=== PATIENT | female | born 1985 | race Caucasian/White ===

== ENCOUNTER → 2017-12-02 | Day surgery (SDC) | payer OTHER ==
[~2017-12-02] MED LIST: LIDOCAINE 1% MDV 20ML VIAL SQ; LIDOCAINE 2% INJ 100 MG/5 ML SDV (FOR ANES.) As Ordered; LR 1,000 ML IV; MIDAZOLAM INJ 2 MG/2 ML VIAL (J2250) As Ordered; PROPOFOL 200 MG/20 ML VIAL As Ordered; ROCURONIUM BROMIDE 50 MG/5 ML VIAL As Ordered; fentaNYL 100 MCG/2 ML INJECTION (J3010) As Ordered
[2017-12-02 07:29] LABS: CONTROL LINE UCG INT CTR LINE PRESENT
[2017-12-02 07:32] LABS: URINE PREG TEST POSITIVE (NEGATIVE)
== END | disposition home or self-care (01) ==
LOC: M SDC 06:44
DX: Z30.2 Encounter for sterilization (principal); Z53.09 Procedure and treatment not carried out because of other contraindication; Z33.1 Pregnant state, incidental
CPT/HCPCS: 84703

== ENCOUNTER → 2018-01-19 | Outpatient (CLI) | payer OTHER | LOC: M SMT 09:35 | DX: Z13.79 Encounter for other screening for genetic and chromosomal anomalies (principal) | CPT/HCPCS: 36415 ==

== ENCOUNTER → 2018-02-15 | Outpatient (CLI) | payer OTHER ==
[2018-02-15 13:28] LABS: BASO % 0.4 % (0.0-1.0); EOS # 0.1 10^3/uL (0.0-0.50); EOS % 1.3 % (0.0-3.0); HEMATOCRIT 37.3 % (36.0-47.0); IMMATURE GRANULOCYTE % 0.8 % (0-3.0); LYMPH % 30.3 % (24.0-44.0); MEAN CORPUSCULAR HEMOGLOBIN 31.3 pg (27.0-33.0); MEAN CORPUSCULAR HGB CONC 34.9 g/dl (32.0-36.5); MEAN CORPUSCULAR VOLUME 89.9 fl (80.0-96.0); MONO # 0.8 10^3/uL (0.0-0.8); MONO % 7.6 % (0.0-5.0); NEUTROPHILS % 59.6 % (36.0-66.0); PLATELET COUNT, AUTOMATED 384 10^3/uL (150-450); RED BLOOD COUNT 4.15 10^6/uL (4.00-5.40); RED CELL DISTRIBUTION WIDTH 12.3 % (11.5-14.5)
[2018-02-15 16:19] LABS: CHLAMYDIA DNA AMPLIFICATION NEGATIVE (NEGATIVE); GC DNA AMPLIFICATION NEGATIVE (NEGATIVE)
[2018-02-16 09:03] LABS: RUBELLA IgG QUALITATIVE IMMUNE (IMMUNE)
[2018-02-16 09:11] LABS: HBsAg Prenatal NEGATIVE (NEGATIVE)
[2018-02-16 09:33] LABS: HEPATITIS C VIRUS ABY INDEX 0.1 INDEX (<0.8)
[2018-02-16 09:34] LABS: HIV 1&2 SCREEN CENTAUR NEGATIVE (NEGATIVE)
== END ==
LOC: M SMT 08:17
DX: Z34.81 Encounter for supervision of other normal pregnancy, first trimester (principal); Z36.89 Encounter for other specified antenatal screening
CPT/HCPCS: 86762

== ENCOUNTER → 2018-03-11 | Outpatient (CLI) | payer OTHER | LOC: M RAD 07:32 | DX: Z36.89 Encounter for other specified antenatal screening (principal); Z3A.18 18 weeks gestation of pregnancy | CPT/HCPCS: 76817 ==

== ENCOUNTER → 2018-04-05 | Outpatient (CLI) | payer OTHER | LOC: M RAD 07:29 | DX: Z34.82 Encounter for supervision of other normal pregnancy, second trimester (principal); Z36.89 Encounter for other specified antenatal screening; Z3A.22 22 weeks gestation of pregnancy | CPT/HCPCS: 76816 ==

== ENCOUNTER → 2018-05-05 | Outpatient (CLI) | payer OTHER ==
[2018-05-05 12:49] LABS: HEMATOCRIT 34.4 % (36.0-47.0); HEMOGLOBIN 11.6 g/dl (12.0-15.5); MEAN CORPUSCULAR HEMOGLOBIN 31.6 pg (27.0-33.0); MEAN CORPUSCULAR HGB CONC 33.7 g/dl (32.0-36.5); MEAN CORPUSCULAR VOLUME 93.7 fl (80.0-96.0); PLATELET COUNT, AUTOMATED 317 10^3/uL (150-450); RED BLOOD COUNT 3.67 10^6/uL (4.00-5.40); RED CELL DISTRIBUTION WIDTH 12.3 % (11.5-14.5); WHITE BLOOD COUNT 9.5 10^3/uL (4.0-10.0)
[2018-05-05 12:56] LABS: GLUCOSE CHALLENGE TEST 1 HOUR 141 MG/DL (LESS THAN 140)
[2018-05-06 08:36] LABS: RH ONLY RHOGAM 1 1
== END ==
LOC: M LAB 10:24
DX: Z34.82 Encounter for supervision of other normal pregnancy, second trimester (principal); Z36.89 Encounter for other specified antenatal screening
CPT/HCPCS: 82950

== ENCOUNTER → 2018-05-10 | Outpatient (CLI) | payer OTHER ==
[2018-05-10 08:28] LABS: GLUCOSE, FASTING 94 MG/DL (LESS THAN 95)
[2018-05-10 09:40] LABS: 1 HR GLUCOSE 166 MG/DL (LESS THAN 180)
[2018-05-10 11:18] LABS: 2 HR GLUCOSE 167 MG/DL (LESS THAN 155)
[2018-05-10 12:58] LABS: 3 HR GLUCOSE 135 MG/DL (LESS THAN 140)
== END ==
LOC: M LAB 07:00
DX: O34.12 Maternal care for benign tumor of corpus uteri, second trimester (principal)
CPT/HCPCS: 82951

== ENCOUNTER → 2018-05-31 | Outpatient (CLI) | payer OTHER ==
[2018-05-31 14:20] LABS: TOTAL PROTEIN,RANDOM URINE 5.7 MG/DL (0.0-12.0)
[2018-05-31 14:20] LABS: CREATININE,RANDOM URINE 21.9 MG/DL
[2018-05-31 17:25] LABS: HEMATOCRIT 36.5 % (36.0-47.0); HEMOGLOBIN 12.5 g/dl (12.0-15.5); MEAN CORPUSCULAR HEMOGLOBIN 31.6 pg (27.0-33.0); MEAN CORPUSCULAR HGB CONC 34.2 g/dl (32.0-36.5); MEAN CORPUSCULAR VOLUME 92.4 fl (80.0-96.0); PLATELET COUNT, AUTOMATED 338 10^3/uL (150-450); RED BLOOD COUNT 3.95 10^6/uL (4.00-5.40); RED CELL DISTRIBUTION WIDTH 12.3 % (11.5-14.5); WHITE BLOOD COUNT 11.6 10^3/uL (4.0-10.0)
[2018-05-31 17:33] LABS: ALT/SGPT 19 U/L (12-78); AST/SGOT 16 U/L (7-37); BILIRUBIN,TOTAL 0.2 MG/DL (0.2-1.0); CREATININE FOR GFR 0.61 MG/DL (0.55-1.30); GLOMERULAR FILTRATION RATE > 60.0 (>60); LDH LACTATE DEHYDROGENASE 193 U/L (84-246)
[2018-06-01 11:40] LABS: URIC ACID 3.8 MG/DL (2.6-6.0)
== END ==
LOC: M SMT 12:28
DX: O16.3 Unspecified maternal hypertension, third trimester (principal); O34.12 Maternal care for benign tumor of corpus uteri, second trimester; I31.3 Pericardial effusion (noninflammatory); Z3A.30 30 weeks gestation of pregnancy
CPT/HCPCS: 84460

== ENCOUNTER → 2018-06-01 | Outpatient (CLI) | payer OTHER | LOC: M SMT 10:55 | DX: O99.89 Other specified diseases and conditions complicating pregnancy, childbirth and the puerperium (principal); Z3A.30 30 weeks gestation of pregnancy | CPT/HCPCS: 76815 ==

== ENCOUNTER → 2018-06-10 | Outpatient (CLI) | payer OTHER | LOC: M RAD 08:12 | DX: O13.3 Gestational [pregnancy-induced] hypertension without significant proteinuria, third trimester (principal); Z3A.31 31 weeks gestation of pregnancy | CPT/HCPCS: 76815 ==

== ENCOUNTER → 2018-06-17 | Outpatient (CLI) | payer OTHER | LOC: M RAD 08:47 | DX: O13.3 Gestational [pregnancy-induced] hypertension without significant proteinuria, third trimester (principal); Z3A.32 32 weeks gestation of pregnancy | CPT/HCPCS: 76815 ==

== ENCOUNTER → 2018-06-21 | Outpatient (CLI) | payer OTHER ==
[~2018-06-21] MED LIST changes: +ADVI200C5 PO; +LABE10TAB PO; -LIDOCAINE 1% MDV 20ML VIAL SQ; -LIDOCAINE 2% INJ 100 MG/5 ML SDV (FOR ANES.) As Ordered; -LR 1,000 ML IV; -MIDAZOLAM INJ 2 MG/2 ML VIAL (J2250) As Ordered; +PRENTAB9 PO; -PROPOFOL 200 MG/20 ML VIAL As Ordered; -ROCURONIUM BROMIDE 50 MG/5 ML VIAL As Ordered; +ZOFR4TAB14 SL; -fentaNYL 100 MCG/2 ML INJECTION (J3010) As Ordered
[2018-06-21 11:57] LABS: ALT/SGPT 28 U/L (12-78); BILIRUBIN,TOTAL 0.2 MG/DL (0.2-1.0); CREATININE FOR GFR 0.55 MG/DL (0.55-1.30); GLOMERULAR FILTRATION RATE > 60.0 (>60); LDH LACTATE DEHYDROGENASE 188 U/L (84-246)
[2018-06-21 12:30] LABS: HEMATOCRIT 35.4 % (36.0-47.0); MEAN CORPUSCULAR HEMOGLOBIN 31.2 pg (27.0-33.0); MEAN CORPUSCULAR HGB CONC 33.9 g/dl (32.0-36.5); MEAN CORPUSCULAR VOLUME 91.9 fl (80.0-96.0); PLATELET COUNT, AUTOMATED 322 10^3/uL (150-450); RED BLOOD COUNT 3.85 10^6/uL (4.00-5.40); WHITE BLOOD COUNT 12.1 10^3/uL (4.0-10.0)
[2018-06-21 14:05] LABS: TOTAL PROTEIN,RANDOM URINE 8.4 MG/DL (0.0-12.0)
== END ==
LOC: M LAB 10:55 → MERGE 10:55
PROVIDERS: ATTEND Obstetrics & Gynecology
DX: O13.3 Gestational [pregnancy-induced] hypertension without significant proteinuria, third trimester (principal)

== ENCOUNTER → 2018-06-24 | Outpatient (CLI) | payer OTHER ==
--- NOTE | 2018-06-24 11:26 | REP ---
Obstetric sonography: Limited study. History: Hypertension. well-being study. Findings: Scanning through the gravid uterus demonstrates a viable single intrauterine gestation in a cephalic lie. Placenta is and anterior O fundal grade 3 without evidence of previa. Amniotic fluid is subjectively normal. CARMENCITA is normal and 9.5 cm. heart rate is recorded at 136 beats per minute. Biophysical profile score is 8/8. SD ratio is normal at 2.56. Electronically Signed by Gabino Salgado MD 06/24/2018 11:17 A
== END ==
LOC: M RAD 08:37
PROVIDERS: ATTEND Obstetrics & Gynecology
DX: O13.3 Gestational [pregnancy-induced] hypertension without significant proteinuria, third trimester (principal)

== ENCOUNTER → 2018-06-29 | Outpatient (REF) | payer OTHER | LOC: M LAB REF 13:07 | PROVIDERS: ATTEND Obstetrics & Gynecology | DX: O14.03 Mild to moderate pre-eclampsia, third trimester (principal) ==

== ENCOUNTER → 2018-06-30 | Outpatient (CLI) | payer OTHER ==
--- NOTE | 2018-06-30 10:01 | REP ---
Clinical: Growth evaluation. Comparison: 06/24/2018, 06/17/2018 . Findings: Examination demonstrates a single live intrauterine in cephalic presentation. motion is identified by technologist. Placenta is noted anterior and grade III without evidence for placenta previa or abruption. 2.3 cm anterior intramural fibroid identified. Amniotic fluid volume is normal. Cervix measures 4.5 cm in length and appears closed. No evidence for nuchal cord. Gestational age by LMP 34 weeks 2 days with LAKEISHA 08/09/2018 . Gestational age by first US measurements 33 weeks 5 days with LAKEISHA 08/13/2018 . FHR equals 139 beats per minute. Amniotic fluid index: 10.6 cm (8.0 - 24.8) Biophysical profile score equals 8/8 Umbilical cord SD ratio: 2.32 (2.00 - 3.20) Impression: 1. Single live intrauterine in cephalic presentation. Biophysical profile score and amniotic fluid volume are normal. 2. 2.3 cm anterior intramural fibroid again noted. Electronically Signed by Dave Jones MD 06/30/2018 09:53 A
== END ==
LOC: M RAD 09:10
PROVIDERS: ATTEND Obstetrics & Gynecology
DX: O13.3 Gestational [pregnancy-induced] hypertension without significant proteinuria, third trimester (principal); Z3A.34 34 weeks gestation of pregnancy

== ENCOUNTER 2018-07-06 11:38 | Outpatient (CLI) | payer OTHER ==
[~2018-07-06] VITALS: Ht 160 cm; Wt 73.7 kg
[2018-07-06] VITALS (28 sets, daily range): BP systolic 124–171; BP diastolic 82–106
[~2018-07-06 11:38] MED LIST changes: -LABE10TAB PO; -PRENTAB9 PO; -ZOFR4TAB14 SL
[2018-07-06] MEDS ORDERED: LABE10TAB PO (11:55)
[2018-07-06] MEDS ORDERED: PRENTAB9 PO (11:55)
[2018-07-06 12:40] LABS: HEMATOCRIT 36.2 % (36.0-47.0); HEMOGLOBIN 12.4 g/dl (12.0-15.5); MEAN CORPUSCULAR HEMOGLOBIN 30.7 pg (27.0-33.0); MEAN CORPUSCULAR HGB CONC 34.3 g/dl (32.0-36.5); MEAN CORPUSCULAR VOLUME 89.6 fl (80.0-96.0); PLATELET COUNT, AUTOMATED 287 10^3/uL (150-450); RED BLOOD COUNT 4.04 10^6/uL (4.00-5.40); WHITE BLOOD COUNT 10.5 10^3/uL (4.0-10.0)
[2018-07-06] MEDS ORDERED: BETAMETHASONE SOLUSPAN 6MG/ML INJ 5ML (J0702) IM SCH (13:00)
[2018-07-06 13:14] LABS: ALT/SGPT 22 U/L (12-78); BILIRUBIN,TOTAL 0.1 MG/DL (0.2-1.0); CREATININE FOR GFR 0.63 MG/DL (0.55-1.30); GLOMERULAR FILTRATION RATE > 60.0 (>60); LDH LACTATE DEHYDROGENASE 205 U/L (84-246); URIC ACID 4.1 MG/DL (2.6-6.0)
[2018-07-06 13:22] LABS: CREATININE,RANDOM URINE 27.8 MG/DL; TOTAL PROTEIN,RANDOM URINE 14.4 MG/DL (0.0-12.0)
[2018-07-06] MEDS ORDERED: LABETALOL 100 MG TAB PO SCH (14:00)
--- NOTE | 2018-07-06 16:21 | IPN ---
DATE: 07/06/2018 Selena is a 33-year-old 4, para 2-0-1-2 at 35-1/7 weeks gestation with an estimated date of confinement (EDC) of 08/09/2018 based on last menstrual period and confirmed by first-trimester ultrasound. She presents to labor and delivery today following a routine visit, in which she was found to have blood pressures elevated in the 150s over 90s. She denies visual disturbances, headache, epigastric pain, right upper quadrant discomfort. She denies contractions, vaginal bleeding, and leakage of fluid. The fetus has been active. The care was initiated at [facility] in the first trimester. course complicated by an onset of pre-eclampsia at about 29 weeks gestation. She has been taking labetalol 100 mg by mouth twice a day since 31 weeks gestation. OBSTETRIC HISTORY: February 2005, a 39-week vaginal delivery, 6-pound 2-ounce male. No complications. February 2006, a 40-week vaginal delivery, male, 8 pounds 7 ounces. She had an elective termination of in July 2012. OBSTETRIC LABORATORIES: A negative, antibody screen negative, rubella immune, VDRL nonreactive. Urine culture: No growth. Hepatitis B surface antigen negative, HIV negative, hepatitis C antibody nonreactive, gonorrhea and chlamydia negative. She did undergo genetic serum screenings and found to have [place], which showed low probability for aneuploidy. Her gestational diabetic screening was elevated at 141 with a normal 3-hour glucose tolerance test. Fasting 94, 1-hour 166, 2-hour 167, 3-hour 135. GBS is negative. PAST MEDICAL HISTORY: 1. Chlamydia in 2009. 2. Childhood Varicella. SURGERIES: 1. Dilatation and curettage (D and C). 2 [place] tooth extraction. FAMILY HISTORY: Hypertension, anxiety. SOCIAL HISTORY: The patient is single; however, her partner is involved in her . She is a nonsmoker. Denies alcohol and drug use. A history of chlamydia. Denies history of abuse, physical, sexual, and emotional. ALLERGIES: Adhesives, Band-Aides, and tapes. CURRENT MEDICATIONS: - labetalol 100 mg by mouth twice a day - vitamin - Fioricet as needed for headaches OBJECTIVE: Upon arrival, her temperature was 97.8, pulse 91, respirations 18, blood pressure (BP) upon arrival was 158/97. She did hover in the 140s over 90s and 100s. Since receiving a midday labetalol dose of 100 mg, her pressures have been running in the 130s over 90s. heart rate is 140 with moderate variability. Positive accelerations. No decelerations. No pattern of regular contractions. Sterile vaginal exam deferred. Her labs have been repeated. Uric acid of 1.1. AST 23, ALT 22. LDH 205. Hemoglobin 12.4, hematocrit 36.2, platelets 287. Her spot urine is stable at 0.52. On 06/21/2018 it was 0.53. On 05/31/2018 it as 0.26. ASSESSMENT: Intrauterine at 35-1/7 weeks gestation, pre-eclampsia. heart rate category 1. PLAN: Continue to observe throughout the day, motioning pressures. At this time I will encourage some out-of-bed activity so we can see where her pressures lie with activity. She has received one dose of betamethasone, due for another dose tomorrow. I will continue to observe the patient.
[2018-07-10] MEDS ORDERED: ZOFR4TAB14 SL (12:34)
[2018-07-16] MEDS ORDERED: LABE10TAB PO (06:56)
[2018-07-16] MEDS ORDERED: MAPA500T2 PO (10:13)
[2018-07-16] MEDS ORDERED: IBUP-1114 PO (10:14)
== END 2018-07-06 20:15 | disposition home or self-care (01) ==
LOC: M LDO 11:38
PROVIDERS: ATTEND Advanced Practice Midwife
DX: O14.93 Unspecified pre-eclampsia, third trimester (principal); Z3A.35 35 weeks gestation of pregnancy; Z98.890 Other specified postprocedural states
CPT/HCPCS: 36415; 59025; 82247; 82565; 82570; 83615; 84156; 84450; 84460; 84550; 85027; 96372; J0702

== ENCOUNTER 2018-07-07 13:02 | Outpatient (CLI) | payer OTHER ==
[~2018-07-07] VITALS: Ht 160 cm; Wt 73.9 kg
[~2018-07-07 13:02] MED LIST changes: +LABE10TAB PO; +PRENTAB9 PO
[2018-07-07 13:19] VITALS: BP 141/89
[2018-07-07 13:27] VITALS: BP 139/90
[2018-07-07] MEDS ORDERED: BETAMETHASONE SOLUSPAN 6MG/ML INJ 5ML (J0702) IM ONE (13:45)
[2018-07-07] MEDS ORDERED: LABETALOL 100 MG TAB PO ONE (13:45)
[2018-07-07 13:46] VITALS: BP 138/84
[2018-07-07 13:57] VITALS: BP 138/84
[2018-07-07 14:01] VITALS: BP 135/87
[2018-07-07 14:19] VITALS: BP 127/68
[2018-07-10] MEDS ORDERED: ZOFR4TAB14 SL (12:34)
[2018-07-16] MEDS ORDERED: LABE10TAB PO (06:56)
[2018-07-16] MEDS ORDERED: MAPA500T2 PO (10:13)
[2018-07-16] MEDS ORDERED: IBUP-1114 PO (10:14)
== END 2018-07-07 14:45 | disposition home or self-care (01) ==
LOC: M LDO 13:02
PROVIDERS: ATTEND Specialist
DX: O14.93 Unspecified pre-eclampsia, third trimester (principal); Z3A.35 35 weeks gestation of pregnancy
CPT/HCPCS: 59025; 76815; 96372; J0702

== ENCOUNTER → 2018-07-08 | Outpatient (CLI) | payer OTHER ==
[~2018-07-08] MED LIST changes: +IBUP-1114 PO; +MAPA500T2 PO; +ZOFR4TAB14 SL
--- NOTE | 2018-07-08 10:03 | REP ---
Obstetric sonography: History: Supervision of . Maternal hypertension. Comparison study June 30, 2018. Findings: Scanning through the gravid uterus demonstrates a viable single intrauterine gestation in a cephalic lie. motion is observed and heart rate is recorded at 131 beats per minute. An anterior grade 3 placenta is seen without evidence of previa. No abruption is seen. Amniotic fluid is subjectively normal. Closed cervical length measures 2.9 cm. No extrauterine abnormalities observed. There has been less than expected interval growth since the prior study. Exam quality is inhibited to some degree by crowding. weight is less than the 3rd percentile. There is a 2.7 x 1.8 x 2.4 cm anterior myometrial fibroid. Amniotic fluid is subjectively decreased. CARMENCITA is normal at 7.8 cm (7.8- 24.9 cm). The following anatomic structures are identified today and felt to be unremarkable: cranium, cavum, lungs, four-chamber heart, left-sided stomach, three-vessel cord, kidneys, urinary bladder. Biometry chart: BPD 8.3 cm = 33 weeks 4 days Head circumference 30.0 cm = 33 weeks 2 days Abdominal circumference 27.9 cm = 31 weeks 6 days Femur length 6.1 cm = 31 weeks 4 days Humeral length 5.5 cm = 32 weeks 1 day HC/AC ratio normal 1.08. Cephalic index normal 0.78. Estimated weight 1902 grams, 4 pounds 3 ounces, less than 3rd percentile for 35 weeks 3 days. Biophysical profile score 8 out of a possible 8. S/D ratio in the umbilical cord artery by Doppler is normal at 2.04. Impression: Viable single intrauterine gestation at 32 weeks 3 days by today's composite sonographic criteria. Expected gestational age estimate based on prior sonography is 34 weeks 6 days. Somewhat less than expected interval growth. Estimated weight in the less than 3rd percentile for 35 weeks 3 days. Electronically Signed by Gabino Salgado MD 07/08/2018 07:07 P
== END ==
LOC: M RAD 08:26
PROVIDERS: ATTEND Obstetrics & Gynecology
DX: O13.3 Gestational [pregnancy-induced] hypertension without significant proteinuria, third trimester (principal); Z3A.35 35 weeks gestation of pregnancy

== ENCOUNTER → 2018-07-11 | Outpatient (CLI) | payer OTHER ==
--- NOTE | 2018-07-12 04:09 | REP ---
Clinical: Growth evaluation. History of preeclampsia. Comparison: 07/08/2018, 06/30/2018 . Findings: Examination demonstrates a single live intrauterine in cephalic presentation. motion is identified by technologist. Placenta is noted right anterior and grade 3 without evidence for placenta previa or abruption. Amniotic fluid volume is normal. Cervix appears closed. No evidence for nuchal cord. Gestational age by LMP 35 weeks 6 days with LAKEISHA 08/09/2018 . Gestational age by first US measurements 35 weeks 2 days with LAKEISHA 08/13/2018 . FHR equals 157 beats per minute. BPP equals 8/8 Amniotic fluid index: 6.9 cm (7.7 - 24.9) Umbilical cord SD ratio: 2.60 (2.00 - 3.00). Impression: Single live intrauterine in cephalic presentation. Biophysical profile score is normal. Amniotic fluid volume is below normal range. Electronically Signed by Dave Jones MD 07/12/2018 04:00 A
== END ==
LOC: M RAD 06:31
PROVIDERS: ATTEND Advanced Practice Midwife
DX: O14.03 Mild to moderate pre-eclampsia, third trimester (principal); Z3A.35 35 weeks gestation of pregnancy

== ENCOUNTER → 2018-11-22 | Outpatient (REF) | payer OTHER ==
[2018-11-25 14:11] LABS: HPV HYBRID CAPTURE II Negative (Negative)
== END ==
LOC: M LAB REF 11-21 13:46
PROVIDERS: ATTEND Obstetrics & Gynecology
DX: Z12.4 Encounter for screening for malignant neoplasm of cervix (principal)

== ENCOUNTER → 2018-11-23 | Outpatient (CLI) | payer OTHER ==
--- NOTE | 2018-11-23 15:01 | REP ---
Clinical: Essential hypertension . Comparison: None . Technique: PA and lateral. Findings: The mediastinum and cardiac silhouette are normal. The lung pickett are clear and without acute consolidation, effusion, or pneumothorax. The skeletal structures are intact and normal. Impression: 1. No acute cardiopulmonary process. Electronically Signed by Dave Jones MD 11/23/2018 02:53 P
== END ==
LOC: M RAD 08:38
PROVIDERS: ATTEND Nurse Practitioner Family
DX: R07.9 Chest pain, unspecified (principal); I10 Essential (primary) hypertension

== ENCOUNTER → 2018-12-22 | Outpatient (REF) | payer OTHER ==
[2018-12-22 12:53] LABS: ALT/SGPT 29 U/L (12-78); BILIRUBIN,TOTAL 0.4 MG/DL (0.2-1.0); BLOOD UREA NITROGEN 14 MG/DL (7-18); CALCIUM LEVEL 9.1 MG/DL (8.5-10.1); CARBON DIOXIDE LEVEL 29 MEQ/L (21-32); CHLORIDE LEVEL 104 MEQ/L (98-107); CHOLESTEROL LEVEL 181 MG/DL (<200); CREATININE FOR GFR 0.92 MG/DL (0.55-1.30); GLOMERULAR FILTRATION RATE > 60.0 (>60); GLUCOSE, FASTING 90 MG/DL (70-100); HDL CHOLESTEROL 50 MG/DL (>40); LDL CHOLESTEROL 99 MG/DL (<100); NON-HDL-C 131 MG/DL; POTASSIUM SERUM 4.1 MEQ/L (3.5-5.1); SODIUM LEVEL 138 MEQ/L (136-145); TOTAL PROTEIN 7.6 GM/DL (6.4-8.2); TRIGLYCERIDES LEVEL 158 MG/DL (<150)
[2018-12-22 12:59] LABS: TOTAL 25(OH) VITAMIN D 41.6 NG/ML (30.0-100.0)
== END ==
LOC: M SFHCPLAZ 08:56
PROVIDERS: ATTEND Nurse Practitioner Family
DX: E78.5 Hyperlipidemia, unspecified (principal); E55.9 Vitamin D deficiency, unspecified

== ENCOUNTER → 2019-09-06 | Outpatient (REF) | payer OTHER ==
[2019-09-06 12:13] LABS: HEMATOCRIT 43.5 % (36.0-47.0); HEMOGLOBIN 14.6 g/dl (12.0-15.5); MEAN CORPUSCULAR HEMOGLOBIN 30.5 pg (27.0-33.0); MEAN CORPUSCULAR HGB CONC 33.6 g/dl (32.0-36.5); MEAN CORPUSCULAR VOLUME 90.8 fl (80.0-96.0); PLATELET COUNT, AUTOMATED 411 10^3/uL (150-450); RED BLOOD COUNT 4.79 10^6/uL (4.00-5.40); WHITE BLOOD COUNT 7.4 10^3/uL (4.0-10.0)
== END ==
LOC: M PLALAB 08:51
PROVIDERS: ATTEND Obstetrics & Gynecology
DX: N93.9 Abnormal uterine and vaginal bleeding, unspecified (principal)

== ENCOUNTER → 2019-09-19 | Outpatient (CLI) | payer OTHER ==
--- NOTE | 2019-09-19 18:56 | REP ---
Clinical: Fibroid uterus. Technique: Transabdominal pelvic ultrasound followed by transvaginal examination for better evaluation of the endometrium and adnexa. Findings: Bladder is grossly normal and measures 7.9 x 5.5 x 7.0 cm Anteverted uterus measures 8.7 x 3.7 x 5.1 cm with 8 mm fundal submucosal fibroid noted. The endometrial complex measures 1.1 mm thickness. The bilateral ovaries are normal in vascularity without torsion. Left ovary measures 2.6 x 2.0 x 2.1 cm. Right ovary measures 2.8 x 2.3 x 3.0 cm and includes 1.8 cm dominant follicle/physiologic cyst. No pelvic free fluid or adnexal mass lesion. Impression: 1. Subcentimeter fundal submucosal fibroid suggested. Electronically Signed by Dave Jones MD 09/19/2019 06:47 P
== END ==
LOC: M WHC 12:47
PROVIDERS: ATTEND Obstetrics & Gynecology
DX: D25.1 Intramural leiomyoma of uterus (principal)

== ENCOUNTER → 2019-11-28 | Outpatient (CLI) | payer OTHER ==
[~2019-11-28] MED LIST changes: +NO ITAB PO; +VITA50005 PO
== END ==
LOC: M LABSMTC 11:42
PROVIDERS: ATTEND Anesthesiology
DX: Z01.818 Encounter for other preprocedural examination (principal); Z11.59 Encounter for screening for other viral diseases
CPT/HCPCS: C9803; U0003

== ENCOUNTER → 2020-11-13 | Outpatient (REF) | payer OTHER ==
[~2020-11-13] MED LIST changes: +LABE100T4 PO; -LABE10TAB PO
[2020-11-13 13:18] LABS: HEMATOCRIT 42.2 % (36.0-47.0); MEAN CORPUSCULAR HEMOGLOBIN 30.6 pg (27.0-33.0); MEAN CORPUSCULAR HGB CONC 33.2 g/dl (32.0-36.5); MEAN CORPUSCULAR VOLUME 92.3 fl (80.0-96.0); PLATELET COUNT, AUTOMATED 409 10^3/uL (150-450); RED BLOOD COUNT 4.57 10^6/uL (4.00-5.40); WHITE BLOOD COUNT 6.9 10^3/uL (4.0-10.0)
== END ==
LOC: M PLALAB 11:05
PROVIDERS: ATTEND Obstetrics & Gynecology
DX: N93.9 Abnormal uterine and vaginal bleeding, unspecified (principal)

== ENCOUNTER → 2020-12-09 | Outpatient (CLI) | payer OTHER ==
--- NOTE | 2020-12-09 22:46 | REP ---
INDICATION: N93.9 ABNORMAL UTERINE BLEEDING COMPARISON: 09/19/2019 TECHNIQUE: Transabdominal pelvic ultrasound followed by transvaginal examination for better evaluation of the endometrium and adnexa with color Doppler evaluation of the ovaries. FINDINGS: Bladder is unremarkable and measures 8.5 x 9.5 x 10.1 cm. Heterogeneous anteverted uterus uterus measures 9.6 x 3.9 x 5.2 cm and there is a 1.2 cm submucosal anterior fibroid and 1 cm left intramural fibroid. The endometrial complex measures 10.5 mm thickness. No discrete endometrial abnormality identified. Right and left ovary are normal in appearance and vascularity without torsion. Right ovary measures 2.7 x 2.0 x 3.0 cm (RI 0.59). Left ovary measures 3.3 x 2.3 x 2.1 cm (RI 0.61). No pelvic fluid or adnexal mass lesion. IMPRESSION: 1.2 cm submucosal fibroid and 1 cm left intramural fibroid. <Electronically signed by Dave Jones > 12/09/20 [id number]
== END ==
LOC: M WHC 11:54
PROVIDERS: ATTEND Obstetrics & Gynecology
DX: N93.9 Abnormal uterine and vaginal bleeding, unspecified (principal)

== ENCOUNTER → 2021-02-26 | Outpatient (CLI) | payer OTHER ==
[~2021-02-26] MED LIST changes: +ATOR1TAB19 PO; +CVS2500C PO; +ERGO500029 PO; +FISH1000 PO; +PROBCAP17 PO; -VITA50005 PO
== END ==
LOC: M LABSMTC 09:42
PROVIDERS: ATTEND Anesthesiology
DX: Z01.812 Encounter for preprocedural laboratory examination (principal); Z20.822 Contact with and (suspected) exposure to COVID-19

== ENCOUNTER 2021-03-03 05:59 | Day surgery (SDC) | payer OTHER ==
[~2021-03-03] VITALS: Ht 160 cm; Wt 69.3 kg
[2021-03-03] MEDS ORDERED: LR 1,000 ML IV ONE (06:00)
[2021-03-03] MEDS ORDERED: ceFAZolin SOD 2 GM in IV 1 EA IV ONE (06:00)
[2021-03-03] MEDS ORDERED: LIDOCAINE 1% MDV 20ML VIAL SQ PRN (06:00)
[2021-03-03 06:48] LABS: HEMATOCRIT 42.9 % (36.0-47.0); HEMOGLOBIN 14.8 g/dl (12.0-15.5); MEAN CORPUSCULAR HEMOGLOBIN 31.2 pg (27.0-33.0); MEAN CORPUSCULAR HGB CONC 34.5 g/dl (32.0-36.5); MEAN CORPUSCULAR VOLUME 90.5 fl (80.0-96.0); PLATELET COUNT, AUTOMATED 420 10^3/uL (150-450); RED BLOOD COUNT 4.74 10^6/uL (4.00-5.40); WHITE BLOOD COUNT 8.6 10^3/uL (4.0-10.0)
[2021-03-03] MEDS ORDERED: BUPIVACAINE HCL 0.25% 30ML VIAL As Ordered ONE (07:11)
[2021-03-03] MEDS ORDERED: METHYLENE BLUE 0.5% (5MG/ML) 10 ML AMP (PROVAYBLUE) As Ordered ONE (07:12)
[2021-03-03] MEDS ORDERED: propofoL 200 MG/20 ML VIAL As Ordered ONE (07:14)
[2021-03-03] MEDS ORDERED: fentaNYL 250 MCG/5 ML INJECTION (J3010) As Ordered ONE (07:14)
[2021-03-03] MEDS ORDERED: MIDAZOLAM INJ 2MG/2ML VIAL (J2250 PER 1MG) As Ordered ONE (07:14)
[2021-03-03] MEDS ORDERED: ROCURONIUM BROMIDE 50 MG/5 ML VIAL As Ordered ONE (07:14)
[2021-03-03] MEDS ORDERED: LIDOCAINE 2% 100MG/5ML SDV (FOR ANES.) As Ordered ONE (07:14)
[2021-03-03] MEDS ORDERED: dexameTHASONE 4 MG/ML 1ML VIAL (J1100 PER 1MG) As Ordered ONE (07:41)
[2021-03-03] MEDS ORDERED: METOCLOPRAMIDE INJ 10MG/2ML VIAL (J2765 PER 1) As Ordered ONE (07:46)
[2021-03-03] MEDS ORDERED: SUGAMMADEX SODIUM 500 MG/5 ML VIAL (BRIDION) As Ordered ONE (07:56)
[2021-03-03] MEDS ORDERED: ONDANSETRON 4MG/2ML VIAL As Ordered ONE (07:56)
[2021-03-03] MEDS ORDERED: ACETAMINOPHEN 1000MG 100ML IV BTL (OFIRMEV) (J0131 PER 10MG) As Ordered ONE (07:56)
[2021-03-03] MEDS ORDERED: HYDROmorphone HCL 2 MG/ML 1ML VIAL (J1170) As Ordered ONE (07:57)
[2021-03-03] MEDS ORDERED: ePHEDrine SULFATE 25 MG/5 ML(5MG/ML) SYRINGE As Ordered ONE (08:23)
[2021-03-03] MEDS ORDERED: LR 1,000 ML IV SCH ×2 (09:20→09:40)
[2021-03-03] MEDS ORDERED: PERCOCET 5MG/325MG TAB PO PRN ×2 (09:20)
[2021-03-03] MEDS ORDERED: PROMETHAZINE INJ 25 MG/ML VIAL (J2550) IV PRN (09:20)
--- NOTE | 2021-03-03 09:25 | ROOPDOC ---
[facility] Report Of Operation Report of Operation DATE OF PROCEDURE: 03/03/2021 PREPROCEDURE DIAGNOSES: Abnormal uterine bleeding, chronic pelvic pain. Uterine leiomyomas POSTPROCEDURE DIAGNOSES: Same. PROCEDURE: Robotic-assisted total laparoscopic hysterectomy, bilateral salpingectomy, cystoscopy SURGEON: Sundeep Qiu D.O. FACOG COMMUNICATIONS TECHNOLOGIST: Paula Grissom ANESTHESIA: General endotracheal. ESTIMATED BLOOD LOSS: Approximately 10 mL. FLUIDS REPLACED: 1100 mL LR URINE OUTPUT: 150 and mL COMPLICATIONS: None. FINDINGS: Normal-appearing ovaries bilaterally. Uterus was approximately 9 centimeters in greatest dimension. Cystoscopy: Bilateral ureteral orifice efflux, no bladder injury/suture material. PREOPERATIVE ANTIBIOTIC PROPHYLAXIS: Ancef 2 g IV 1. SPECIMEN(S): Uterus w/ cervix, bilateral fallopian tubes DESCRIPTION OF PROCEDURE: The patient was counseled, consented on the respective benefits, indications, alternatives of procedure. Informed consent was obtained. She was taken to the operating room with an IV running. She was placed on the operating table in dorsal supine position. Gen. anesthesia was administered and the airway was secured without any difficulty. She was placed in the low lithotomy position. . She was prepared and draped in the normal sterile fashion. A time out was performed per protocol. A Marquis catheter was placed under sterile conditions. A sterile speculum was placed resulting in good visualization of the cervix. A single-tooth tenaculum was used to grasp the anterior lip cervix. The cervix was sequentially dilated with Skinny dilators. A V-Care uterine manipulator was placed without any difficulty. The single-tooth tenaculum was removed, as well as the speculum. A sterile glove switch was performed. Attention was turned to the abdomen. A 2mm incision was made in the umbilicus, and through this incision a Veress ne edle was inserted into the intraperitoneal cavity. Intraperitoneal placement was confirmed with ease of flow of normal saline, positive drop test, no return on aspiration, and an opening pressure of less than 10 mmHg upon initial insufflation. The abdomen was insufflated with 2 L of gas. The Veress needle was removed. A supraumbilical 8 mm incision was made. Through this incision, the robotic trochar/cannula was inserted into the intraperitoneal cavity under direct visualization. No incidental bleeding nor injury was noted. Patient was placed in 30 Trendelenburg. The right and left trocars/cannulas were placed on both the right and left side through 8 mm incisions, guided by laparoscopic visualization. No incidental bleeding nor injury was noted. The robot was docked in typical fashion. The instruments were inserted, guided by laparoscopic visualization. My attention was turned to the robotic console. Using the vessel sealer device, the right and left fallopian tubes were amputated. The fallopian tubes were brought through the assist-port cannula without any difficulty. The right utero-ovarian ligament and right round ligament were sequentially clamped, coagulated and transected with the vessel sealer device. The vesicouterine peritoneum was dissected with the vessel sealer device to create the bladder flap, thus mobilizing the lower uterine segment and cervix off of the bladder. The right uterine vasculature was sequentially clamped, coagulated and transected above the colpotomy cup. The left utero-ovarian ligament and left round ligament were sequentially clamped, coagulated and transected with the vessel sealer device. The remainder of the bladder flap was dissected using the vessel sealer device and blunt dissection. The left uterine vasculature was sequentially clamped, coagulated and transected above the colpotomy cup. The outline of the entire V- care colpotomy cup was able to be delineated. Excellent blanching of the uterus was noted. A circumferential colpotomy was performed using the da Matthew monopolar lissy, following the contour of the cup. The amputated cervix and uterus were brought through the colpotomy into and out of the vagina, intact as one unit. The colpotomy was closed with the V-lock barbed suture in running fashion, thus creating the vaginal cuff. Excellent hemostasis was noted throughout the steps above. Dulce Maria was placed over the vaginal cuff to ensure hemostasis. The instruments were removed from the abdomen and the robot was un-docked. The gas was released from the abdomen and the patient was taken out of Trendelenburg. I re-scrubbed, and attention was turned to the pelvis. The Marquis catheter was removed. The cystoscope was placed transurethrally into the bladder and normal saline was instilled. No bladder injury/suture material was noted. IV methylene blue had been administered by anesthesia and bilateral UO efflux was confirmed. The fluid was drained out of the bladder through the cystoscope device, then the cystoscope was removed. The vagina was copiously irrigated. A sterile digital vaginal exam revealed no significant bleeding and an intact vaginal cuff. A sterile glove switch was performed. The xPeerient Matthew cannulas were removed. The skin incisions were closed with 4-0 Monocryl in subcuticular fashion. Sponge, needle and instrument counts were correct per protocol. The patient tolerated the entire procedure very well. She was transferred to the PACU in good and stable condition. DO BERNABE Sagastume JONATHAN R. DO Mar 03, 2021 09:25
[2021-03-03] MEDS ORDERED: fentaNYL 100 MCG/2 ML INJECTION (J3010) IV PRN (09:40)
[2021-03-03] MEDS ORDERED: METOCLOPRAMIDE INJ 10MG/2ML VIAL (J2765 PER 1) IV PRN (09:40)
[2021-03-03] MEDS ORDERED: ONDANSETRON 4MG/2ML VIAL IV PRN (09:40)
[2021-03-03] MEDS: PERCOCET 5MG/325MG TAB PO PRN ×2 (09:52→10:28)
[2021-03-03] MEDS: KETOROLAC 30 MG/ML 1ML VIAL IV SCH ×2 (09:52→16:01)
[2021-03-03 11:35] VITALS: BP 116/74
[2021-03-03 12:05] VITALS: BP 121/76
[2021-03-03 13:05] VITALS: BP 120/76
[2021-03-03] MEDS ORDERED: COLA100C5 PO (13:34)
[2021-03-03] MEDS ORDERED: IBUP80TA PO (13:34)
[2021-03-03] MEDS ORDERED: PERCOCET PO (13:34)
[2021-03-03 14:05] VITALS: BP 140/89
[2021-03-03] MEDS ORDERED: DOCUSATE SODIUM 100MG CAPSULE PO SCH (21:00)
[2021-03-04] MEDS ORDERED: IBUPROFEN 800 MG TAB PO SCH (12:00)
== END 2021-03-03 18:20 | disposition home or self-care (01) ==
LOC: M SDC 05:59 → M MS5PR 11:35 → M SDC 18:20
PROVIDERS: ATTEND Obstetrics & Gynecology
DX: N93.9 Abnormal uterine and vaginal bleeding, unspecified (principal); R10.2 Pelvic and perineal pain; N80.0 Endometriosis of uterus; D25.9 Leiomyoma of uterus, unspecified; E78.5 Hyperlipidemia, unspecified; G43.909 Migraine, unspecified, not intractable, without status migrainosus; F41.9 Anxiety disorder, unspecified; F32.9 Major depressive disorder, single episode, unspecified; Z79.899 Other long term (current) drug therapy
CPT/HCPCS: 36415; 58571; 81025; 85027; 86850; 86900; 86901; 88307; J0131; J0690; J1100; J1170; J1885; J2250; J2405; J2765; J3010; Q9968; S2900

== ENCOUNTER 2021-03-22 05:50 | Emergency (ER) | payer OTHER ==
[~2021-03-22] VITALS: Ht 160 cm; Wt 69.6 kg
[~2021-03-22 05:50] MED LIST changes: +COLA100C5 PO; +IBUP80TA PO; +PERCOCET PO
[2021-03-22] MEDS ORDERED: diazePAM 2 MG TAB PO ONE ×2 (08:20→08:50)
[2021-03-22] MEDS ORDERED: NS 1,000 ML IV ONE (08:20)
[2021-03-22] MEDS ORDERED: ACETAMINOPHEN 325 MG TAB PO ONE (08:25)
[2021-03-22 09:09] LABS: BASO % 0.4 % (0.0-1.0); EOS % 0.1 % (0.0-3.0); HEMATOCRIT 40.6 % (36.0-47.0); HEMOGLOBIN 13.8 g/dl (12.0-15.5); LYMPH % 11.4 % (24.0-44.0); MEAN CORPUSCULAR HEMOGLOBIN 30.9 pg (27.0-33.0); MONO # 0.3 10^3/uL (0.0-0.8); MONO % 2.7 % (2.0-8.0); NEUTROPHILS # 7.8 10^3/uL (1.5-8.5); NEUTROPHILS % 85.1 % (36.0-66.0); PLATELET COUNT, AUTOMATED 458 10^3/uL (150-450); RED BLOOD COUNT 4.46 10^6/uL (4.00-5.40); WHITE BLOOD COUNT 9.1 10^3/uL (4.0-10.0)
[2021-03-22 09:20] LABS: ALT/SGPT 25 U/L (12-78); BILIRUBIN,DIRECT < 0.1 MG/DL (0.0-0.2); BILIRUBIN,TOTAL 0.2 MG/DL (0.2-1.0); BLOOD UREA NITROGEN 12 MG/DL (7-18); CALCIUM LEVEL 9.7 MG/DL (8.5-10.1); CARBON DIOXIDE LEVEL 26 MEQ/L (21-32); CHLORIDE LEVEL 108 MEQ/L (98-107); CREATININE FOR GFR 0.87 MG/DL (0.55-1.30); GLOMERULAR FILTRATION RATE > 60.0 (>60); GLUCOSE, FASTING 119 MG/DL (70-100); LIPASE 120 U/L (73-393); POTASSIUM SERUM 4.7 MEQ/L (3.5-5.1); SODIUM LEVEL 140 MEQ/L (136-145)
[2021-03-22 11:49] VITALS: BP 149/93
[2021-03-22] MEDS ORDERED: DOCU100C16 PO (20:27)
[2021-03-22] MEDS ORDERED: [UNRECOGNIZED DRUG - CODE] PO (20:27)
[2021-03-22] MEDS ORDERED: IBUP80TA PO (20:27)
== END 2021-03-22 11:52 | disposition home or self-care (01) ==
LOC: M ED 05:50
DX: T88.9XXA Complication of surgical and medical care, unspecified, initial encounter (principal); R10.84 Generalized abdominal pain; N83.201 Unspecified ovarian cyst, right side; N93.9 Abnormal uterine and vaginal bleeding, unspecified; R11.2 Nausea with vomiting, unspecified; R19.7 Diarrhea, unspecified; F41.9 Anxiety disorder, unspecified; Z79.899 Other long term (current) drug therapy

== ENCOUNTER 2021-03-22 18:38 | Day surgery (SDC) | payer OTHER ==
[~2021-03-22] VITALS: Ht 160 cm; Wt 68.2 kg
[2021-03-22] MEDS ORDERED: NS 1,000 ML IV ONE (19:15)
[2021-03-22 19:51] LABS: BASO # 0.1 10^3/uL (0.0-0.2); BASO % 0.5 % (0.0-1.0); EOS # 0.1 10^3/uL (0.0-0.5); HEMATOCRIT 38.6 % (36.0-47.0); LYMPH # 2.8 10^3/uL (1.5-5.0); LYMPH % 25.5 % (24.0-44.0); MEAN CORPUSCULAR HEMOGLOBIN 31.1 pg (27.0-33.0); MEAN CORPUSCULAR HGB CONC 33.7 g/dl (32.0-36.5); MEAN CORPUSCULAR VOLUME 92.3 fl (80.0-96.0); MONO # 0.7 10^3/uL (0.0-0.8); MONO % 6.5 % (2.0-8.0); NEUTROPHILS # 7.3 10^3/uL (1.5-8.5); NEUTROPHILS % 66.2 % (36.0-66.0); PLATELET COUNT, AUTOMATED 450 10^3/uL (150-450); RED BLOOD COUNT 4.18 10^6/uL (4.00-5.40); WHITE BLOOD COUNT 11.1 10^3/uL (4.0-10.0)
[2021-03-22 20:11] LABS: RSV AMPLIFICATION NEGATIVE (NEGATIVE)
[2021-03-22] MEDS ORDERED: IBUP80TA PO (20:27)
[2021-03-22] MEDS ORDERED: DOCU100C16 PO (20:27)
[2021-03-22] MEDS ORDERED: [UNRECOGNIZED DRUG - CODE] PO (20:27)
[2021-03-22] MEDS ORDERED: HOME MED LIST COMPLETE! XX SCH (20:30)
[2021-03-22] MEDS ORDERED: LIDOCAINE 2% 100MG/5ML SDV (FOR ANES.) As Ordered ONE (22:02)
[2021-03-22] MEDS ORDERED: dexameTHASONE 4 MG/ML 1ML VIAL (J1100 PER 1MG) As Ordered ONE (22:02)
[2021-03-22] MEDS ORDERED: propofoL 200 MG/20 ML VIAL As Ordered ONE (22:02)
[2021-03-22] MEDS ORDERED: SUCCINYLCHOLINE 100 MG/5 ML SYRINGE (J0330) As Ordered ONE (22:02)
[2021-03-22] MEDS ORDERED: ROCURONIUM BROMIDE 50 MG/5 ML VIAL As Ordered ONE (22:02)
[2021-03-22] MEDS ORDERED: fentaNYL 250 MCG/5 ML INJECTION (J3010) As Ordered ONE (22:02)
[2021-03-22] MEDS ORDERED: KETOROLAC 60MG 2ML VIAL As Ordered ONE (22:02)
[2021-03-22] MEDS ORDERED: MIDAZOLAM INJ 2MG/2ML VIAL (J2250 PER 1MG) As Ordered ONE (22:02)
[2021-03-22] MEDS ORDERED: ONDANSETRON 4MG/2ML VIAL As Ordered ONE (22:02)
[2021-03-22] MEDS ORDERED: MEPERIDINE INJ 25 MG/ML VIAL (J2175) As Ordered ONE (22:11)
--- NOTE | 2021-03-22 22:14 | ROOPDOC ---
[facility] Report Of Operation Report of Operation DATE OF PROCEDURE: 03/22/21 PREPROCEDURE DIAGNOSES: Vaginal cuff bleeding status post hysterectomy. POSTPROCEDURE DIAGNOSES: Same. PROCEDURE PERFORMED: Repair of vaginal cuff. SURGEON: Ilan Ardon MD ANESTHESIA: GETA. ESTIMATED BLOOD LOSS: Approximately 50 mL. COMPLICATIONS: None. FINDINGS: Active bleeding from the left corner of the vaginal cuff incision. Slight dehiscence of the left corner of the vaginal cuff to approximately 1 cm in length. SPECIMENS REMOVED: None PROCEDURE NOTE: The patient was taken to the operating room where general endotracheal anesthesia was induced. She was prepped and draped in sterile fashion in the dorsal lithotomy position. The patient had emptied her bladder prior to the procedure. A self-retaining speculum was placed in the vagina. Active bleeding was noted from the left side corner of the vaginal cuff. The incision was slightly opened in this area. A [id number] suture of 2-0 Vicryl was placed at the level of the vaginal cuff. A second [id number] was placed. Excellent hemostasis was noted. There was no further bleeding. All instruments were removed. Sponge instrument needle counts were correct. The patient was extubated and went to recovery room in stable condition. . ILAN ARDON MD Mar 22, 2021 22:14
[2021-03-22] MEDS ORDERED: PERCOCET 5MG/325MG TAB PO PRN (22:20)
[2021-03-22] MEDS ORDERED: METOCLOPRAMIDE INJ 10MG/2ML VIAL (J2765 PER 1) IV PRN (22:20)
[2021-03-22] MEDS ORDERED: fentaNYL 100 MCG/2 ML INJECTION (J3010) IV PRN (22:20)
[2021-03-22] MEDS ORDERED: ONDANSETRON 4MG/2ML VIAL IV PRN (22:20)
[2021-03-22] MEDS: MEPERIDINE INJ 25 MG/ML VIAL (J2175) IV PRN ×2 (22:20→22:25)
[2021-03-22] MEDS ORDERED: LR 1,000 ML IV SCH (22:20)
[2021-03-22 23:00] VITALS: BP 147/90
[2021-03-22] MEDS: ACETAMINOPHEN 500 MG TAB PO PRN (23:22)
[2021-03-22 23:30] VITALS: BP 151/90
[2021-03-23] VITALS: BP 146/93
[2021-03-23 01:00] VITALS: BP 133/88
[2021-03-23 02:00] VITALS: BP 130/73
[2021-03-23 06:26] VITALS: BP 131/75
[2021-03-23] MEDS: ACETAMINOPHEN 500 MG TAB PO PRN (07:51)
[2021-03-23 10:00] VITALS: BP 125/80
== END 2021-03-23 12:48 | disposition home or self-care (01) ==
LOC: M ED 18:38 → M SDC 18:39 → M ED 20:57 → M SDC 21:24 → M OBS 23:21 → M SDC 03-23 12:48
PROVIDERS: ATTEND Specialist
DX: T88.9XXA Complication of surgical and medical care, unspecified, initial encounter (principal); R10.84 Generalized abdominal pain; N83.201 Unspecified ovarian cyst, right side; N93.9 Abnormal uterine and vaginal bleeding, unspecified; R11.2 Nausea with vomiting, unspecified; R19.7 Diarrhea, unspecified; E78.2 Mixed hyperlipidemia; Z79.899 Other long term (current) drug therapy
CPT/HCPCS: 12020; 76856; 80048; 80076; 81001; 83690; 85025; 86140; 86850; 86900; 86901; 87086; 87631; 93976; 96360; 99283; 99284; J0330; J1100; J1885; J2175; J2250; J2405; J3010

== ENCOUNTER → 2021-10-03 | Outpatient (CLI) | payer OTHER ==
[~2021-10-03] MED LIST changes: +DOCU100C16 PO; +[UNRECOGNIZED DRUG - CODE] PO
== END ==
LOC: M WHC 13:30
PROVIDERS: ATTEND Nurse Practitioner Family
DX: M79.604 Pain in right leg (principal)